=== PATIENT | male | born 1970 | race Caucasian/White ===

== ENCOUNTER 2016-03-07 10:37 | Emergency (ER) | payer BC ==
[2016-03-07 13:31] VITALS: BP 113/76
--- NOTE | 2016-03-07 13:56 | UC ---
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 - History of Current Complaint Chief Complaint: UCRespiratory Stated Complaint: SORE THROAT,FEVER,CONGESTION Time Seen by Provider: 03/07/16 13:31 Hx Obtained From: Patient Onset/Duration: Sudden Onset, Lasting Hours Severity: Severe Pain Intensity: 7 Pain Scale Used: 0-10 Numeric Cough: Nonproductive Associated Signs & Symptoms: Positive: Dysphagia, Hoarseness, Sinus Discomfort - Epiglottits Risk Factors Epiglottis Risk Factors: Negative - Allergies/Home Medications Allergies/Adverse Reactions: Allergies Allergy/AdvReac Type Severity Reaction Status Date / Time No Known Allergies Allergy Verified 03/07/16 13:27 Home Medications: Home Medications Levothyroxine TAB* [Synthroid TAB*] 50 mcg PO DAILY 03/07/16 [History Confirmed 03/07/16] Multivitamins/Minerals TAB* [Thera M Plus TAB*] 1 tab PO DAILY 03/07/16 [ History Confirmed 03/07/16] PMH/Surg Hx/FS Hx/Imm Hx Previously Healthy: Yes Endocrine History Of: Reports: Thyroid Disease - Hypothyroidism - Surgical History Surgical History: Yes Surgery Procedure, Year, and Place: Spleenectomy, ~2002, [facility] – [place] - Family History Known Family History: Positive: Blood Disorder - he does not know the name - Social History Alcohol Use: Rare Substance Use Type: None Smoking Status (MU): Never Smoked Tobacco - Immunization History Most Recent Influenza Vaccination: Unsure for Season Review of Systems Constitutional: Fatigue Skin: Negative Eyes: Negative ENT: Sore Throat, Nasal Discharge Respiratory: Cough Cardiovascular: Negative Gastrointestinal: Negative Genitourinary: Negative Motor: Negative Neurovascular: Negative Musculoskeletal: Negative Neurological: Negative Psychological: Negative All Other Systems Reviewed And Are Negative: Yes Physical Exam Triage Information Reviewed: Yes Appearance: Well-Nourished, Ill-Appearing, Pain Distress Vital Signs: Initial Vital Signs Temp 98.8 F 03/07/16 13:25 Pulse 64 03/07/16 13:25 Resp 16 03/07/16 13:25 BP 113/76 03/07/16 13:25 Pulse Ox 97 03/07/16 13:25 Vital Signs Reviewed: Yes Eye Exam: Normal Eyes: Positive: Conjunctiva Clear ENT: Positive: Pharyngeal erythema, Nasal congestion, TMs normal, Tonsillar swelling, Tonsillar exudate Dental Exam: Normal Neck exam: Normal Neck: Positive: Supple, Nontender, Enlarged Nodes @ - tonsilar, bilateral Respiratory Exam: Normal Respiratory: Positive: Chest non-tender, Lungs clear, Normal breath sounds Cardiovascular Exam: Normal Cardiovascular: Positive: RRR, No Murmur, Pulses Normal Abdominal Exam: Normal Abdomen Description: Positive: Nontender, No Organomegaly, Soft Bowel Sounds: Positive: Present Musculoskeletal Exam: Normal Musculoskeletal: Positive: Strength Intact, ROM Intact, No Edema Neurological Exam: Normal Neurological: Positive: Alert, Muscle Tone Normal Psychological Exam: Normal Skin Exam: Normal Throat Pain/Nasal Course/Dx - Course Course Of Treatment: history obtained, exam performed, medication reviewed, and prescribed. Rapid strep is negative, treating based on clinical finding. - Differential Dx/Diagnosis Differential Diagnosis/HQI/PQRI: Influenza, Laryngitis, Otitis Media, Pharyngitis, Sinusitis, Tonsillitis, URI Provider Diagnoses: pharyngitis Discharge - Discharge Plan Condition: Stable Disposition: HOME Prescriptions: Amoxicillin CAP* 500 mg PO Q12H #20 cap Patient Education Materials: Pharyngitis (ED) Additional Instructions: take the medication as prescribed. Increase fluid intake and get plenty of rest. Motrin or tylenol for pain and fever.
== END 2016-03-07 14:01 | disposition home or self-care (01) ==
LOC: UCCORT 10:37
DX: J02.9 Acute pharyngitis, unspecified (principal); E03.9 Hypothyroidism, unspecified
CPT/HCPCS: 87651; 99212; G0463

== ENCOUNTER 2017-01-16 10:02 | Emergency (ER) | payer OTHER ==
[2017-01-16 12:59] VITALS: BP 116/73
--- NOTE | 2017-01-16 13:03 | UC ---
Throat Pain/Nasal Diego HPI - HPI Summary HPI Summary: came in for c/o sore throat, nasal congestion for a couple of days. denies fever at this time. took some ibuprofen with some relief says he always gets strep swab always negative and then 2 days later he gets sicker. - History of Current Complaint Chief Complaint: UCRespiratory Stated Complaint: SORE THROAT Time Seen by Provider: 01/16/17 12:55 Hx Obtained From: Patient Onset/Duration: Sudden Onset Severity: Moderate Associated Signs & Symptoms: Positive: Negative - Epiglottits Risk Factors Epiglottis Risk Factors: Negative - Allergies/Home Medications Allergies/Adverse Reactions: Allergies Allergy/AdvReac Type Severity Reaction Status Date / Time No Known Allergies Allergy Verified 01/16/17 12:53 Home Medications: Home Medications Simvastatin TAB(NF) [Zocor 10 MG (NF)] 10 mg PO DAILY 01/16/17 [History Confirmed 01/16/17] PMH/Surg Hx/FS Hx/Imm Hx Previously Healthy: Yes Endocrine History: Thyroid Disease, Hypothyroidism, Dyslipidemia - Surgical History Surgical History: Yes Surgery Procedure, Year, and Place: [place], [place] [facility] [place] - Family History Known Family History: Positive: Blood Disorder - he does not know the name - Social History Alcohol Use: Rare Substance Use Type: None Smoking Status (MU): Never Smoked Tobacco - Immunization History Most Recent Influenza Vaccination: Unsure for Season Review of Systems Constitutional: Negative Skin: Negative Eyes: Negative ENT: Sore Throat Respiratory: Negative Cardiovascular: Negative Gastrointestinal: Negative Genitourinary: Negative Motor: Negative Neurovascular: Negative Musculoskeletal: Negative Neurological: Negative Is Patient Immunocompromised?: No All Other Systems Reviewed And Are Negative: Yes Physical Exam Triage Information Reviewed: Yes Appearance: Well-Appearing, No Pain Distress Vital Signs: Initial Vital Signs Temp 97.1 F 01/16/17 12:54 Pulse 80 01/16/17 12:54 Resp 16 01/16/17 12:54 BP 116/73 01/16/17 12:54 Pulse Ox 97 01/16/17 12:54 Vital Signs Reviewed: Yes Eyes: Positive: Conjunctiva Clear ENT: Positive: Pharyngeal erythema Neck exam: Normal Respiratory Exam: Normal Cardiovascular Exam: Normal Abdominal Exam: Normal Musculoskeletal Exam: Normal Psychological Exam: Normal Skin Exam: Normal Throat Pain/Nasal Course/Dx - Course Course Of Treatment: increase fluid intake daily while on abx to prevent dehydration. take abx as directed - discussed use and common side effects of med. rapid strep negative. f/u pcp in 1 week if symptoms not resolving - Differential Dx/Diagnosis Provider Diagnoses: pharyngitis Discharge - Discharge Plan Condition: Stable Disposition: HOME Prescriptions: Azithromycin TAB* [Zithromax TAB (Z-STALIN) 250 mg #6 tabs] 2 tab PO .TODAY, THEN 1 DAILY 5 Days #1 stalin Patient Education Materials: Pharyngitis (ED) Referrals: Pedro Briscoe MD [Primary Care Provider] - 1 Week
== END 2017-01-16 13:22 | disposition home or self-care (01) ==
LOC: UCCORT 10:02
DX: J02.9 Acute pharyngitis, unspecified (principal); E03.9 Hypothyroidism, unspecified; E78.5 Hyperlipidemia, unspecified
CPT/HCPCS: 87651; 99212; G0463

== ENCOUNTER 2017-03-12 10:36 | Emergency (ER) | payer BC, OTHER ==
[2017-03-12 13:08] VITALS: BP 105/63
--- NOTE | 2017-03-12 13:14 | UC ---
Respiratory Complaint HPI - HPI Summary HPI Summary: 46 y/o female presents to the urgent care c/o productive cough for the past 5 days. Pt states symptoms worsen with fever, nasal congestion with green nasal discharge for the past 2 days. GARCIA is 8/10. He children has been Dx with strep and influenza in the past week. He has been taking Tylenol PO to alleviate symptoms. Pt denies SOB, chest pain, abdominal pain, N/V/D. - History of Current Complaint Chief Complaint: UCGeneralIllness Stated Complaint: COUGH,FEVER Time Seen by Provider: 03/12/17 13:12 Hx Obtained From: Patient Onset/Duration: Gradual Onset, Lasting Days - 5 days, Still Present, Worse Since - yesterday Timing: Constant Severity Initially: Mild Severity Currently: Severe Pain Intensity: 8 Pain Scale Used: 0-10 Numeric Character: Cough: Productive, Sputum Description: - yellowish Aggravating Factors: Recumbent Position Alleviating Factors: OTC Meds Associated Signs And Symptoms: Positive: Fever, Chills, URI, Nasal Congestion - Risk Factors Pulmonary Embolism Risk Factors: Negative Cardiac Risk Factors: Negative Pseudomonas Risk Factors: Negative Tuberculosis Risk Factors: Negative - Allergies/Home Medications Allergies/Adverse Reactions: Allergies Allergy/AdvReac Type Severity Reaction Status Date / Time No Known Allergies Allergy Verified 03/12/17 13:08 PMH/Surg Hx/FS Hx/Imm Hx Previously Healthy: Yes Endocrine History: Hypothyroidism, Dyslipidemia - Surgical History Surgical History: Yes Surgery Procedure, Year, and Place: Spleenectomy, ~2002, [facility]. bilateral knee - Family History Family History: Cervical CA, Liver CA, hypothyroidism, dyslipidemia - Social History Occupation: Employed Full-time Lives: With Family Alcohol Use: Rare Substance Use Type: None Smoking Status (MU): Never Smoked Tobacco - Immunization History Most Recent Influenza Vaccination: Unsure for 2015/2016 Season Review of Systems Constitutional: Fever, Chills, Other - body aches Skin: Negative Eyes: Negative ENT: Nasal Discharge, Sinus Congestion Respiratory: Shortness Of Breath - mild, Cough - productive Cardiovascular: Negative Gastrointestinal: Negative Genitourinary: Negative Motor: Negative Neurovascular: Negative Musculoskeletal: Negative Neurological: Headache Psychological: Negative Is Patient Immunocompromised?: No All Other Systems Reviewed And Are Negative: Yes Physical Exam Triage Information Reviewed: Yes Vital Signs: Initial Vital Signs Temp 99.1 F 03/12/17 13:03 Pulse 78 03/12/17 13:03 Resp 16 03/12/17 13:03 BP 105/63 03/12/17 13:03 Pulse Ox 96 03/12/17 13:03 - Additional Comments VITAL SIGNS: Reviewed. GENERAL: Patient is a well developed and nourished male who is sitting comfortable in the examining table. Patient is not in any acute respiratory distress. HEAD AND FACE: No signs of trauma. No ecchymosis, hematomas or skull depressions. No sinus tenderness. edematous erythematous nasal mucosa with yellowish discharge, EYES: PERRLA, EOMI x 2, No injected conjunctiva, clear watery eyes, no nystagmus. No photophobia. EARS: Hearing grossly intact. Ear canals and tympanic membranes are within normal limits. MOUTH: pharynx with no erythema, no exudates, no palatal petechiae. no B/L tonsillar enlargement Uvula in midline. NECK: Supple, trachea is midline, Positive anterior cervical lymphadenopathy, no JVD, no carotid bruit, no c-spine tenderness, neck with full ROM. No meningeal signs, no Kernig's or brudzinskis signs. CHEST: Symmetric, no tenderness at palpation LUNGS: Positive breath sounds with bilateral posterior upper lungs with scattered rhonchi. No wheezing or crackles. CVS: Regular rate and rhythm, S1 and S2 present, no murmurs or gallops appreciated. ABDOMEN: Soft, non-tender. No signs of distention. No rebound no guarding, and no masses palpated. Bowel sounds are normal. EXTREMITIES: FROM in all major joints, no edema, no cyanosis or clubbing. NEURO: Alert and oriented x 3. No acute neurological deficits. Speech is normal and follows commands. SKIN: Dry and warm UC Diagnostic Evaluation - Laboratory O2 Sat by Pulse Oximetry: 96 Respiratory Course/Dx - Course Course Of Treatment: 46 y/o female presents to the urgent care c/o productive cough for the past 5 days. Pt states symptoms worsen with fever, nasal congestion with green nasal discharge for the past 2 days. GARCIA is 8/10. He children has been Dx with strep and influenza in the past week. He has been taking Tylenol PO to alleviate symptoms. Pt denies SOB, chest pain, abdominal pain, N/V/D. Hx obtained. Pt with URI on examination. Rapid strep ordered, result: negative. Influenza A&B ordered: result: Influenza A positive. Chest X- ray ordered: impression: no active cardiopulmonary disease. Pt Rx Tamiflu, Tessalon tablets and albuterol inhaler to alleviate cough. Pt was also prescribed ibuprofen PO to alleviate symptoms. Advised on hand washing and wear a mask to avoid spreading. Pt advised to rest, increase fluid intake, eat well and avoid strenuous exercise. If he develops fever or severe SOB to go immediately to the ER for further treatment. Pt understood and agreed with plan of care. - Differential Dx/Diagnosis Differential Diagnosis/HQI/PQRI: Asthma, Bronchitis, Influenza, Laryngitis, Lower Resp Infection, Sinusitis Provider Diagnoses: 1- Influenza B. 2- Cough Discharge - Discharge Plan Condition: Stable Disposition: HOME Prescriptions: Albuterol HFA INHALER* [Ventolin HFA Inhaler*] 1 - 2 puff INH Q6H PRN #1 mdi PRN Reason: Cough Benzonatate CAP* [Tessalon 100 MG CAP*] 100 mg PO TID PRN #21 cap PRN Reason: Cough Ibuprofen TAB* [Motrin TAB* 800 MG] 800 mg PO Q6H PRN #20 tab PRN Reason: Fever Oseltamivir CAP* [Tamiflu CAP*] 75 mg PO BID #10 cap Patient Education Materials: Influenza (ED) Forms: *Work Release Referrals: Pedro Briscoe MD [Primary Care Provider] - 3 Days Additional Instructions: 1- Please take the full course of the antiviral to avoid resistance. Encourage hand washing and wear a mask to avoid spreading. 2-Please continue taking Ibuprofen PO q6-8hrs prn as instructed after meals to alleviate fever,body aches. Increase fluid intake, eat well, rest and avoid strenuous exercise 3- Take Tessalon tabs PO and Albuterol inhaler to alleviate cough. 3-If symptoms do not improve or worsen please return to the urgent care or f/u with your PCP in 2 days for further evaluation and treatment.
--- NOTE | 2017-03-12 14:14 | RAD ---
HISTORY: Productive cough, fever, shortness of breath COMPARISONS: March 28, 2015 VIEWS: 4: Frontal dual-energy and lateral views of the chest. FINDINGS: CARDIOMEDIASTINAL SILHOUETTE: The cardiomediastinal silhouette is normal. IRAIDA: The iraida are normal. PLEURA: The costophrenic angles are sharp. No pleural abnormalities are noted. LUNG PARENCHYMA: The lungs are clear. ABDOMEN: The upper abdomen is clear. There is no subphrenic gas. BONES AND SOFT TISSUES: No bone or soft tissue abnormalities are noted. OTHER: None. IMPRESSION: NO ACTIVE CARDIOPULMONARY DISEASE.
== END 2017-03-12 14:35 | disposition home or self-care (01) ==
LOC: UCCORT 10:36
DX: J10.1 Influenza due to other identified influenza virus with other respiratory manifestations (principal); R05 Cough
CPT/HCPCS: 71046; 87502; 87651; 99212; G0463

== ENCOUNTER 2018-01-25 12:14 | Emergency (ER) | payer BC ==
[2018-01-25 12:39] VITALS: BP 101/73
--- NOTE | 2018-01-25 13:06 | UC ---
Throat Pain/Nasal Diego HPI - HPI Summary HPI Summary: 47-year-old male comes in with chief complaint of 2-3 days of sore throat and feeling ill. 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 He reports that he gets strep throat almost yearly. Overall he feels ill. Pain is worse with swallowing. He wakes up with a sore throat and it gradually gets better in the days he eats and drinks but then returns again the next day. - History of Current Complaint Chief Complaint: UCRespiratory Stated Complaint: ST Time Seen by Provider: 01/25/18 13:01 Pain Intensity: 4 - Allergies/Home Medications Allergies/Adverse Reactions: Allergies Allergy/AdvReac Type Severity Reaction Status Date / Time No Known Allergies Allergy Verified 01/25/18 12:32 Home Medications: Home Medications Ascorbic Acid TAB* [Vitamin C TAB*] 500 mg PO DAILY 01/25/18 [History Confirmed 01/25/18] [place]-3 Fatty Acids/Fish Oil [Fish Oil 1,000 mg Capsule] 1 each PO DAILY [History Confirmed 01/25/18] PMH/Surg Hx/FS Hx/Imm Hx Previously Healthy: Yes - SPLENECTOMY FOR ITP - Surgical History Surgical History: Yes Surgery Procedure, Year, and Place: Spleenectomy, ~2002, [facility] [place] - Family History Known Family History: Positive: Blood Disorder - he does not know the name Family History: Cervical CA, Liver CA, hypothyroidism, dyslipidemia - Social History Alcohol Use: Rare Substance Use Type: None Smoking Status (MU): Never Smoked Tobacco - Immunization History Most Recent Influenza Vaccination: Unsure for 2015/2016 Season Review of Systems All Other Systems Reviewed And Are Negative: Yes Constitutional: Positive: Fever Skin: Positive: Negative Eyes: Positive: Negative ENT: Positive: Sore Throat, Ear Ache, Nasal Discharge Respiratory: Positive: Negative Cardiovascular: Positive: Negative Gastrointestinal: Positive: Negative Motor: Positive: Negative Neurovascular: Positive: Negative Musculoskeletal: Positive: Negative Neurological: Positive: Negative Psychological: Positive: Negative Is Patient Immunocompromised?: Yes - S/P SPLENECTOMY Physical Exam Triage Information Reviewed: Yes Appearance: No Pain Distress, Well-Nourished, Ill-Appearing - MILD Vital Signs: Initial Vital Signs Temp 97.9 F 01/25/18 12:34 Pulse 64 01/25/18 12:34 Resp 18 01/25/18 12:34 BP 101/73 01/25/18 12:34 Pulse Ox 99 01/25/18 12:34 Vital Signs Reviewed: Yes Eye Exam: Normal Eyes: Positive: Conjunctiva Clear ENT: Positive: Pharyngeal erythema, Nasal congestion, Nasal drainage, TMs normal , Tonsillar swelling, Uvula midline Neck exam: Normal Neck: Positive: Supple, Nontender Respiratory: Positive: Lungs clear, Normal breath sounds, No respiratory distress Cardiovascular: Positive: RRR Musculoskeletal: Positive: Strength Intact, ROM Intact Neurological Exam: Normal Neurological: Positive: Alert, Muscle Tone Normal Psychological Exam: Normal Psychological: Positive: Age Appropriate Behavior Skin Exam: Normal Throat Pain/Nasal Course/Dx - Course Course Of Treatment: Because the patient is asplenic we will treat with antibiotics. - Differential Dx/Diagnosis Provider Diagnosis: Pharyngitis Discharge - Sign-Out/Discharge Documenting (check all that apply): Patient Departure All imaging exams completed and their final reports reviewed: No Studies - Discharge Plan Condition: Stable Disposition: HOME Prescriptions: Amoxicillin/Clavulanate TAB* [Augmentin TAB 875*] 875 mg PO BID #20 tab Patient Education Materials: Pharyngitis (ED) Referrals: Pedro Briscoe MD [Primary Care Provider] - Additional Instructions: FOLLOW UP WITH YOUR DOCTOR IF NOT COMPLETELY IMPROVED. GET RECHECKED FOR ANY WORSENING OF YOUR CONDITION OR QUESTIONS OR CONCERNS. - Billing Disposition and Condition Condition: STABLE Disposition: Home
== END 2018-01-25 13:19 | disposition home or self-care (01) ==
LOC: UCCORT 12:14
DX: J02.9 Acute pharyngitis, unspecified (principal)
CPT/HCPCS: 87651; 99212; G0463